=== PATIENT | female | born 1960 | race Caucasian/White ===

== ENCOUNTER 2021-10-25 11:34 | Outpatient (CLI) | payer OTHER, SELFPAY ==
[2021-10-25 11:49] VITALS: BP 133/66; PULSE 51; RESP 18; TEMP 36.6; O2SAT 98; BMI 136382.0
[2021-10-25] MEDS: 0.9% Saline Lock 10 ML Syringe IV (11:54)
[2021-10-25 12:17] VITALS: BP 127/65; PULSE 88; RESP 16; TEMP 36.6; O2SAT 98
[2021-10-25 13:17] VITALS: BP 131/79; PULSE 86; RESP 16; TEMP 37; O2SAT 98
== END 2021-10-25 23:59 | disposition home or self-care (01) ==
LOC: MS3OUT 11:36 → MS3 11:36
PROVIDERS: Visit Provider Nurse Practitioner Adult Health
DX: Z23 Encounter for immunization (principal); U07.1 COVID-19; J45.909 Unspecified asthma, uncomplicated
CPT/HCPCS: J7050; M0243; A4216; Q0244